=== PATIENT | male | born 1940 | race Caucasian/White ===

== ENCOUNTER 2019-04-05 22:10 | Emergency (ER) | payer MEDICARE, SELFPAY ==
--- NOTE | 2019-04-05 22:17 | DI.RAD.S_ITS ---
PROCEDURE: XR CHEST 1V INDICATIONS: chest pain TECHNIQUE: One view of the chest was acquired. COMPARISON: None. FINDINGS: Surgical changes and devices: None. Lungs and pleura: There is left hemidiaphragm elevation. Lungs are clear. No pleural effusions or pneumothorax. Mediastinum: Mediastinal contours appear normal. Heart size is normal. Bones and chest wall: No suspicious bony lesions. Overlying soft tissues appear unremarkable. IMPRESSION: 1. 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 If clinically indicated, sniff test under fluoroscopy may be helpful. 2. No acute cardiopulmonary disease. Dictated by: Myrna Sheridan M.D. on 04/06/2019 at 9:11 Approved by: Myrna Sheridan M.D. on 04/06/2019 at 9:12
--- NOTE | 2019-04-05 22:19 | ED_ITS ---
HPI - Chest Pain General Chief Complaint: Chest Pain Stated Complaint: FIBROMYALGIA LEFT/RIGHT SIDE SHOULDER PAIN NECK Time Seen by Provider: 04/05/19 22:17 Source: patient Mode of arrival: Ambulatory Limitations: no limitations History of Present Illness HPI narrative: 78-year-old male former smoker with history of hypertension presents by private auto for evaluation of a sharp and stabbing L sided neck pain / shoulder pain. His pain is worse with motion and improves with rest. He is not dizzy nor weak or lightheaded. He denies any chest pain or shortness of breath. He denies any dizziness, lightheadedness nor numbness, tingling or weakness. He denies any obvious or significant injury. He was seen and evaluated by paramedics who performed a 12 lead EKG which was interpreted as acute VT, aunts they recommended he come and be seen. He denies any exertional change nor other cardiac equivalent or red flags such as diaphoresis or vomiting. Related Data Previous Rx's Medication Instructions Recorded cyclobenzaprine 10 mg PO TID PRN #14 tab 04/06/19 ibuprofen 600 mg PO TID-QID PRN #20 tab 04/06/19 Allergies Allergy/AdvReac Type Severity Reaction Status Date / Time Penicillins AdvReac Verified 04/05/19 22:20 Review of Systems Constitutional Constitutional: Denies chills, Denies fatigue, Denies fever(s), Denies frequent falls, Denies lethargy and Denies weakness Eyes Eyes: Denies change in vision, Denies eye discharge, Denies irritation and Denies loss of vision ENT Ears, Nose, Mouth, and Throat: Denies change in voice, Denies dizziness, Reports neck pain, Denies sore throat and Denies throat swelling Cardiovascular Cardiovascular: Denies chest pain, Denies irregular heart rhythm, Denies lightheadedness, Denies palpitations, Denies dyspnea, Denies dyspnea on exertion and Denies orthopnea Respiratory Respiratory: Denies cough, Denies dyspnea, Denies dyspnea on exertion and Denies wheezing Gastrointestinal Gastrointestinal: Denies abdominal pain, Denies change in bowel habits, Denies diarrhea, Denies nausea and Denies vomiting Genitourinary Genitourinary: Denies hematuria, Denies flank pain, Denies urinary incontinence and Denies urinary urgency Musculoskeletal Musculoskeletal: Denies back pain, Denies muscle weakness, Reports neck pain, Denies numbness and Denies tingling Integumentary/Breasts Skin/Breast: Denies pruritus, Denies erythema, Denies rash and Denies wounds Neurologic Neurologic: Denies behavioral changes, Denies confusion, Denies dizziness, Denies frequent falls, Denies loss of vision, Denies numbness, Denies tingling and Denies weakness Psychiatric Psychiatric: Denies anxiety, Denies behavioral changes, Denies confusion, Denies depression, Denies homicidal ideation and Denies suicidal ideation Endocrine Endocrine: Denies fatigue, Denies flushing and Denies palpitations Hematologic/Lymphatic Hematologic/Lymphatic: Denies easy bruising Allergic/Immunologic Allergic/Immunologic: Denies urticaria, Denies throat swelling and Denies wheezing Patient History Social History Smoking Status: Former smoker Smoking Status: Former smoker Substance Use Type: does not use Exam Narrative Exam Narrative: GENERAL: [78] year old patient appears stated age. Well- nourished, well-developed patient, in mild distress. HEAD: Atraumatic. Normocephalic. EYES: Pupils equal round and reactive. Extraocular motions intact. No scleral icterus. No injection or drainage. ENT: Nose without bleeding, purulent drainage. Throat without erythema, tonsillar hypertrophy or exudate. Airway patent. NECK: Trachea midline. Left-sided paraspinal muscles are tender to palpate. There is no swelling, warmth, induration, erythema or pulsatile mass. No ecchymosis. Pain is worse with isolation of paraspinal neck muscles, with turning head to the left, tilting to the left, and tracking shoulders. CARDIOVASCULAR: Regular rate and rhythm without murmurs, gallops, or rubs. RESPIRATORY: Clear to auscultation. Breath sounds equal bilaterally. No wheezes, rales, or rhonchi. GASTROINTESTINAL: Abdomen soft, non-tender, nondistended. EXTREMITIES: No edema or joint tenderness. BACK: Nontender without deformity or crepitance. No flank tenderness. NEURO: AOx3. SKIN: No rash or erythema of visible areas Initial Vital Signs Initial Vital Signs: Vital Signs Temperature 99.8 F H 04/05/19 22:23 Pulse Rate 74 04/05/19 22:23 Respiratory Rate 18 04/05/19 22:23 Blood Pressure 172/90 H 04/05/19 22:23 Pulse Oximetry 100 04/05/19 22:23 Procedures Orthopedic Splinting/Casting Injury #1: Additional Comments: soft cervical collar placed, patient states it makes him feel better. Patient remains neurovascularly intact. Splint placed by nursing Course Orders Ordered: ED Orders 04/05/19 22:17 XR chest 1V Stat EKG-12 Lead Stat 04/05/19 22:25 Complete Blood Count AUTO DIFF Stat Comprehensive Metabolic Panel Stat Lipase Stat Troponin & CK Cardiac Panel Stat Discontinued Medications Aspirin (Aspirin Chew) 324 mg PO NOW ONE Stop: 04/05/19 22:18 Last Admin: 04/05/19 22:57 Dose: Not Given Documented by: DARIN Cyclobenzaprine HCl (Flexeril 10 Mg Prepack) 1 bottle MISC SEEINSTR ONE Stop: 04/05/19 23:44 Last Admin: 04/05/19 23:56 Dose: 1 bottle Documented by: ANALI Sodium Chloride (Normal Saline 0.9%) 1,000 mls @ 150 mls/hr IV CONT PRESTON Last Infusion: 04/05/19 23:56 Dose: 0 mls/hr Documented by: Admin: 04/05/19 22:25 Dose: 150 mls/hr Documented by: DARIN Ketorolac Tromethamine (Toradol) 15 mg IV NOW ONE Stop: 04/05/19 23:44 Last Admin: 04/05/19 23:56 Dose: 15 mg Documented by: ANALI Vital Signs Vital signs: Vital Signs - 8 hr 04/05/19 22:23 04/05/19 23:29 04/06/19 00:32 Temperature 99.8 F H Pulse Rate 74 73 74 Respiratory Rate 18 18 18 Blood Pressure 172/90 H 144/93 H Blood Pressure [Right Arm] 145/88 H Pulse Oximetry 100 96 97 MDM - Chest Pain Lab Data Result diagrams: 04/05/19 22:25 04/05/19 22:25 Labs: Lab Results 04/05/19 04/05/19 Range/Units 22:25 22:25 WBC 7.8 (4.5-11.0) X10^3/uL RBC 3.55 L (4.5-5.9) X10^6/uL Hgb 13.2 L (13.5-17.5) g/dL Hct 38.4 L (41-53) % MCV 108.2 H (80-100) fL MCH 37.3 H (26-34) PG MCHC 34.5 (30-36) % RDW 15.5 H (11.6-14.8) % Plt Count 89 L (150-400) X10^3/uL Neut % (Auto) 63.7 (50-75) % Lymph % (Auto) 12.1 L (25-40) % [place] % (Auto) 22.7 H (3-14) % Eos % (Auto) 1.3 L (2-4) % Baso % (Auto) 0.2 (0-2) % Neut # (Auto) 5000 (7695-0891) /uL Lymph # (Auto) 900 L (3385-0163) /uL [place] # (Auto) 1800 H (0-900) /uL Eos # (Auto) 100 (0-450) /uL Baso # (Auto) 0 (0-100) /uL Sodium 141 (137-145) mmol/L Potassium 4.3 (3.4-5.1) mmol/L Chloride 105 (98-107) mmol/L Carbon Dioxide 27 (22-32) mmol/L BUN 22 H (9-20) mg/dL Creatinine 0.80 (0.66-1.25) mg/dL Estimated GFR > 60.0 (>60) mL/min BUN/Creatinine Ratio 27.5 H (6-22) Glucose 100 (80-110) mg/dL Calcium 9.6 (8.4-10.2) mg/dL Total Bilirubin 1.3 (0.2-1.3) mg/dL AST 27 (17-59) IU/L ALT 19 (<50) IU/L Alkaline Phosphatase 70 (38-126) U/L Total Creatine Kinase 74 (55-170) U/L CK-MB (CK-2) TNP CK-MB (CK-2) Rel Index TNP Troponin I < 0.012 (0.01-0.034) ng/mL Total Protein 7.6 (6.3-8.2) g/dL Albumin 4.8 (3.5-5.0) g/dL Globulin 2.8 (1.7-4.1) g/dL Albumin/Globulin Ratio 1.7 (1.0-2.8) Lipase 153 (23-300) U/L Discharge Plan Departure Patient Disposition: Home Clinical Impression: Pain in left paraspinal region Discharge Date/Time: 04/06/19 00:41 Instructions: DI for Neck Pain Activity Restrictions/Additional Instructions: *You have been diagnosed with [acute left-sided paraspinal neck pain] *What to do: *Take medications as directed *Follow up with your primary care provider in 2-3 days, call for an appointment. Let them know you were seen in the Emergency Department and that we ask that you be seen in follow up *Return to ER if you should have any new, worsening or concerning symptoms, such as [chest pain, shortness of breath, sweating for no good reason, fever over 101 and other bothersome symptoms] Prescriptions: New cyclobenzaprine 10 mg tablet 10 mg PO TID PRN (Reason: muscle spasm) Qty: 14 RF: 0 ibuprofen 600 mg tablet 600 mg PO TID-QID PRN (Reason: pain) Qty: 20 RF: 0
[2019-04-05 22:23] VITALS: BP 172/90; PULSE 74; RESP 18; TEMP 37.7; O2SAT 100; BMI 22.3
[2019-04-05] MEDS: SODIUM CHLORIDE 0.9% 1,000 ML 150 ML IV (22:25)
[2019-04-05 22:36] LABS: Add Manual Diff / Slide Review NO; Basophils Absolute Auto 0 /uL (0-100); Basophils Percent Auto 0.2 % (0-2); Eosinophils Absolute Auto 100 /uL (0-450); Eosinophils Percent Auto 1.3 % (2-4); Hematocrit 38.4 % (41-53); Hemoglobin 13.2 g/dL (13.5-17.5); Lymphocytes Absolute Auto 900 /uL (1100-4500); Lymphocytes Percent Auto 12.1 % (25-40); Mean Corpuscular HGB Conc 34.5 % (30-36); Mean Corpuscular Hemoglobin 37.3 PG (26-34); Mean Corpuscular Volume 108.2 fL (80-100); Monocytes Absolute Auto 1800 /uL (0-900); Monocytes Percent Auto 22.7 % (3-14); Neutrophils Absolute Auto 5000 /uL (1500-7000); Neutrophils Percent Auto 63.7 % (50-75); Platelet Count 89 X10^3/uL (150-400); Red Blood Cell Count 3.55 X10^6/uL (4.5-5.9); Red Cell Distribution Width 15.5 % (11.6-14.8); White Blood Cell Count 7.8 X10^3/uL (4.5-11.0)
[2019-04-05 22:43] LABS: Alanine Aminotransferase 19 IU/L (<50); Albumin 4.8 g/dL (3.5-5.0); Albumin Globulin Ratio 1.7 (1.0-2.8); Alkaline Phosphatase 70 U/L (38-126); Aspartate Aminotransferase 27 IU/L (17-59); BUN Creatinine Ratio 27.5 (6-22); Bilirubin Total 1.3 mg/dL (0.2-1.3); Blood Urea Nitrogen 22 mg/dL (9-20); Calcium 9.6 mg/dL (8.4-10.2); Carbon Dioxide 27 mmol/L (22-32); Chloride 105 mmol/L (98-107); Creatine Kinase 74 U/L (55-170); Estimated Glomerular Filt Rate > 60.0 mL/min (>60); Globulin 2.8 g/dL (1.7-4.1); Glucose 100 mg/dL (80-110); HEMOLYSIS < 15 (0-50); Lipase 153 U/L (23-300); Potassium 4.3 mmol/L (3.4-5.1); Sodium 141 mmol/L (137-145); Total Protein 7.6 g/dL (6.3-8.2)
[2019-04-05 22:54] LABS: Troponin I < 0.012 ng/mL (0.01-0.034)
[2019-04-05 23:29] VITALS: BP 145/88; PULSE 73; RESP 18; O2SAT 96
[2019-04-05] MEDS: CYCLOBENZAPRINE 10 MG PREPACK 1 BOTTLE MISC (23:56)
[2019-04-05] MEDS: KETOROLAC 60 MG/2 ML VIAL 15 MG IV (23:56)
[2019-04-06 00:32] VITALS: BP 144/93; PULSE 74; RESP 18; O2SAT 97
== END 2019-04-06 00:41 | disposition home or self-care (01) ==
PROVIDERS: Emergency Provider Emergency Medicine
DX: M54.2 Cervicalgia (principal); M25.512 Pain in left shoulder; I10 Essential (primary) hypertension
CPT/HCPCS: 36415; 71045; 80053; 82550; 83690; 84484; 85025; 93005; 96361; 96374; 99284; 99285; J1885

== ENCOUNTER 2019-04-11 20:04 | Emergency (ER) | payer MEDICARE, SELFPAY ==
--- NOTE | 2019-04-11 20:22 | ED.GENADULT ---
HPI - General Adult General Chief complaint: Weakness Stated complaint: falls, unable to get back up Time Seen by Provider: 04/11/19 20:06 Source: patient Mode of arrival: Family Vehicle Limitations: no limitations History of Present Illness HPI narrative: Patient is a 78-year-old male who was sent to our department from [facility] after the paramedics were called to his house. Patient states that he was bending over to plug and some space heaters when he stated that he does lost his balance and fell over and could get up. Patient states that he feels like he has had some balance issues over the past several days/weeks. No specific symptoms. No headache. No spinning sensation. No chest pain. No shortness of breath. He was seen here in our emergency department approximately 1 week ago after he was complaining of shoulder pain. [place] however his workup here in the emergency department resulted in a musculoskeletal etiology of his symptoms. Patient has not tried anything for symptoms. Has not been evaluated by his primary doctor for his symptoms. Related Data Previous Rx's Medication Instructions Recorded cyclobenzaprine 10 mg PO TID PRN #14 tab 04/06/19 ibuprofen 600 mg PO TID-QID PRN #20 tab 04/06/19 Allergies Allergy/AdvReac Type Severity Reaction Status Date / Time Penicillins AdvReac Verified 04/05/19 22:20 Review of Systems Constitutional Constitutional: Denies chills, Reports frequent falls, Denies headache(s), Denies lethargy, Denies poor appetite and Reports weakness Eyes Eyes: Denies change in vision and Denies diplopia ENT Ears, Nose, Mouth, and Throat: Denies vertigo, Denies dizziness, Denies headache(s), Reports disequilibrium and Denies sinus pressure Cardiovascular Cardiovascular: Denies chest pain, Denies chest pain at rest, Denies syncope, Denies lightheadedness, Denies palpitations and Denies dyspnea Respiratory Respiratory: Denies chest congestion, Denies cough and Denies dyspnea Gastrointestinal Gastrointestinal: Denies abdominal pain, Denies nausea and Denies vomiting Genitourinary Genitourinary: Denies dysuria Musculoskeletal Musculoskeletal: Denies back pain, Denies myalgias and Denies arthralgias Integumentary/Breasts Skin/Breast: Denies rash Neurologic Neurologic: Denies abnormal speech, Denies behavioral changes, Denies confusion, Denies vertigo, Denies dizziness, Denies syncope, Reports frequent falls, Denies headache(s), Denies paresthesias, Reports disequilibrium and Reports weakness Psychiatric Psychiatric: Denies anxiety, Denies behavioral changes and Denies confusion Endocrine Endocrine: Denies palpitations Hematologic/Lymphatic Hematologic/Lymphatic: Denies easy bleeding and Denies easy bruising Allergic/Immunologic Allergic/Immunologic: Denies urticaria Patient History Medical History Back pain (Acute) Social History Smoking Status: Former smoker Smoking Status: Former smoker alcohol intake frequency: 0-2 drinks per day Alcohol type: wine Substance Use Type: does not use Exam Initial Vital Signs Initial Vital Signs: Vital Signs Temperature 98.3 F 04/11/19 20:24 Pulse Rate 87 04/11/19 20:24 Respiratory Rate 18 04/11/19 20:24 Blood Pressure 129/74 04/11/19 20:24 Pulse Oximetry 98 04/11/19 20:24 Const General: cooperative, comfortable, well developed, well groomed and No acute distress Nutritional Appearance: average body habitus Limitations: mental status not altered HENIA Head: normal to inspection and normocephalic Eyes Eyelids: eyelids normal Pupils: PERRL EOM: EOM intact bilaterally Chest Chest: No crepitus and No tenderness Resp Effort & Inspection: normal respiratory effort Auscultation: clear to auscultation bilaterally Cardio Rate: regular rate Rhythm: regular rhythm Pulses: radial pulses present GI Inspection: non-distended Palpation: soft, No firm and No tender Back/Spine/Pelvis Back: No CVA tenderness Skin Other: Multiple abrasions on his hands and elbows in various stages of healing most likely consistent with multiple falls. Neuro General: alert, awake and oriented x3 Cranial Nerves: CN's II-XI intact bilaterally Cognition: normal cognition Speech: speech normal Motor: strength 5/5 throughout Sensory Exam: no sensory deficits noted Coordination: [id number] test normal Extrem General: normal to inspection, capillary refill normal and No edema Psych Appearance: grossly normal and well kempt Scores GCS [place] coma scale eye opening: Spontaneous [place] coma scale verbal response: Orientated [place] coma scale motor response: Obey commands [place] coma scale total score: 15 Nexus Score for C-Spine Focal Neurologic deficit present: No Midline spinal tenderness present: No Altered level of conciousness present: No Intoxication present: No Distracting Injury Present: No Nexus Criteria for C-spine: 0 NIH Stroke Scale Level of Conciousness: Alert, keenly responsive Ask month/age: Answers both questions correctly. Open/close eyes, close hand: Performs both tasks correctly Best gaze horizontal: Normal Visual banerjee: No visual loss Facial palsy: Normal symetrical movement Left arm drift: No drift for full 10 sec Right arm drift: No drift for full 10 sec Left leg drift: No drift for full 10 sec Right leg drift: No drift for full 10 sec Limb ataxia: Absent Sensory on face/arms/legs: Normal, no sensory loss Best language: No aphasia, normal Dysarthria: Normal Extinction or inattention: No abnormality Total NIH Stroke scale score: 0 Course Orders Ordered: ED Orders 04/11/19 20:18 Acetaminophen Stat Complete Blood Count AUTO DIFF Stat Comprehensive Metabolic Panel Stat Ethanol (ETOH) Stat Lipase Stat Procalcitonin Stat Thyroid Stimulating Hormone Stat Troponin I Stat 04/11/19 20:24 CT head/brain wo con Stat 04/11/19 20:32 EKG-12 Lead Stat 04/11/19 20:36 Ammonia (NH3) Stat CKMB Panel (CK + CKMB) Stat 04/11/19 21:11 US abdomen limited Stat 04/11/19 21:20 Urine Microscopic Stat Sodium Chloride (Normal Saline 0.9%) 1,000 mls @ 125 mls/hr IV CONT PRESTON Last Admin: 04/11/19 20:51 Dose: 125 mls/hr Documented by: CONTRERAS Discontinued Medications Aspirin (Aspirin Chew) 324 mg PO NOW ONE Stop: 04/11/19 21:12 Last Admin: 04/11/19 21:23 Dose: 324 mg Documented by: CONTRERAS Vital Signs Vital signs: Vital Signs - 8 hr 04/11/19 20:24 04/11/19 21:29 04/11/19 22:04 Temperature 98.3 F Pulse Rate 87 86 80 Respiratory Rate 18 15 17 Blood Pressure 129/74 Blood Pressure [Left Arm] 123/66 128/65 Pulse Oximetry 98 100 99 04/11/19 22:31 Temperature Pulse Rate 68 Respiratory Rate 14 Blood Pressure Blood Pressure [Left Arm] 123/65 Pulse Oximetry 99 Medical Decision Making Medical Records Medical records reviewed: Yes I reviewed the patient's medical records. Lab Data Lab results reviewed: Yes I reviewed the patient's lab results. Result diagrams: 04/11/19 20:18 04/11/19 20:18 Labs: Lab Results 04/11/19 04/11/19 04/11/19 Range/Units 20:18 20:18 20:18 WBC 9.1 (4.5-11.0) X10^3/uL RBC 3.23 L (4.5-5.9) X10^6/uL Hgb 12.0 L (13.5-17.5) g/dL Hct 35.0 L (41-53) % MCV 108.3 H (80-100) fL MCH 37.3 H (26-34) PG MCHC 34.4 (30-36) % RDW 15.0 H (11.6-14.8) % Plt Count 139 L (150-400) X10^3/uL Neut % (Auto) 70.5 (50-75) % Lymph % (Auto) 8.2 L (25-40) % [place] % (Auto) 19.9 H (3-14) % Eos % (Auto) 1.2 L (2-4) % Baso % (Auto) 0.2 (0-2) % Neut # (Auto) 6400 (1150-7118) /uL Lymph # (Auto) 700 L (4815-2603) /uL [place] # (Auto) 1800 H (0-900) /uL Eos # (Auto) 100 (0-450) /uL Baso # (Auto) 0 (0-100) /uL Sodium 139 (137-145) mmol/L Potassium 4.3 (3.4-5.1) mmol/L Chloride 106 (98-107) mmol/L Carbon Dioxide 25 (22-32) mmol/L BUN 77 H (9-20) mg/dL Creatinine 1.30 H (0.66-1.25) mg/dL Estimated GFR 53.5 L (>60) mL/min BUN/Creatinine Ratio 59.2 H (6-22) Glucose 108 (80-110) mg/dL Calcium 9.1 (8.4-10.2) mg/dL Total Bilirubin 0.8 (0.2-1.3) mg/dL AST 125 H (17-59) IU/L ALT 74 H (<50) IU/L Alkaline Phosphatase 55 (38-126) U/L Ammonia (9-30) umol/L Total Creatine Kinase (55-170) U/L CK-MB (CK-2) (<2.37) ng/mL CK-MB (CK-2) Rel Index (1.5-5.0) % Troponin I (0.01-0.034) ng/mL Total Protein 6.6 (6.3-8.2) g/dL Albumin 3.8 (3.5-5.0) g/dL Globulin 2.8 (1.7-4.1) g/dL Albumin/Globulin Ratio 1.4 (1.0-2.8) Lipase 508 H D (23-300) U/L Procalcitonin 0.44 (<0.5) ng/mL TSH (0.47-4.68) uIU/mL Urine RBC (0-5/HPF) Urine WBC (0-5/HPF) Urine Bacteria (None) Urine Sperm Ur Culture Indicated? Acetaminophen (10-30) ug/mL Ethyl Alcohol < 10 ( - 10) mg/dL 04/11/19 04/11/19 04/11/19 Range/Units 20:18 20:18 20:36 WBC (4.5-11.0) X10^3/uL RBC (4.5-5.9) X10^6/uL Hgb (13.5-17.5) g/dL Hct (41-53) % MCV (80-100) fL MCH (26-34) PG MCHC (30-36) % RDW (11.6-14.8) % Plt Count (150-400) X10^3/uL Neut % (Auto) (50-75) % Lymph % (Auto) (25-40) % [place] % (Auto) (3-14) % Eos % (Auto) (2-4) % Baso % (Auto) (0-2) % Neut # (Auto) (5362-8279) /uL Lymph # (Auto) (7630-3529) /uL [place] # (Auto) (0-900) /uL Eos # (Auto) (0-450) /uL Baso # (Auto) (0-100) /uL Sodium (137-145) mmol/L Potassium (3.4-5.1) mmol/L Chloride (98-107) mmol/L Carbon Dioxide (22-32) mmol/L BUN (9-20) mg/dL Creatinine (0.66-1.25) mg/dL Estimated GFR (>60) mL/min BUN/Creatinine Ratio (6-22) Glucose (80-110) mg/dL Calcium (8.4-10.2) mg/dL Total Bilirubin (0.2-1.3) mg/dL AST (17-59) IU/L ALT (<50) IU/L Alkaline Phosphatase (38-126) U/L Ammonia 14.0 (9-30) umol/L Total Creatine Kinase (55-170) U/L CK-MB (CK-2) (<2.37) ng/mL CK-MB (CK-2) Rel Index (1.5-5.0) % Troponin I 0.065 H (0.01-0.034) ng/mL Total Protein (6.3-8.2) g/dL Albumin (3.5-5.0) g/dL Globulin (1.7-4.1) g/dL Albumin/Globulin Ratio (1.0-2.8) Lipase (23-300) U/L Procalcitonin (<0.5) ng/mL TSH 0.66 (0.47-4.68) uIU/mL Urine RBC (0-5/HPF) Urine WBC (0-5/HPF) Urine Bacteria (None) Urine Sperm Ur Culture Indicated? Acetaminophen < 10 L (10-30) ug/mL Ethyl Alcohol ( - 10) mg/dL 04/11/19 04/11/19 Range/Units 20:36 21:20 WBC (4.5-11.0) X10^3/uL RBC (4.5-5.9) X10^6/uL Hgb (13.5-17.5) g/dL Hct (41-53) % MCV (80-100) fL MCH (26-34) PG MCHC (30-36) % RDW (11.6-14.8) % Plt Count (150-400) X10^3/uL Neut % (Auto) (50-75) % Lymph % (Auto) (25-40) % [place] % (Auto) (3-14) % Eos % (Auto) (2-4) % Baso % (Auto) (0-2) % Neut # (Auto) (5261-6860) /uL Lymph # (Auto) (3883-5191) /uL [place] # (Auto) (0-900) /uL Eos # (Auto) (0-450) /uL Baso # (Auto) (0-100) /uL Sodium (137-145) mmol/L Potassium (3.4-5.1) mmol/L Chloride (98-107) mmol/L Carbon Dioxide (22-32) mmol/L BUN (9-20) mg/dL Creatinine (0.66-1.25) mg/dL Estimated GFR (>60) mL/min BUN/Creatinine Ratio (6-22) Glucose (80-110) mg/dL Calcium (8.4-10.2) mg/dL Total Bilirubin (0.2-1.3) mg/dL AST (17-59) IU/L ALT (<50) IU/L Alkaline Phosphatase (38-126) U/L Ammonia (9-30) umol/L Total Creatine Kinase 953 H D (55-170) U/L CK-MB (CK-2) 10.30 H (<2.37) ng/mL CK-MB (CK-2) Rel Index 1.1 L (1.5-5.0) % Troponin I (0.01-0.034) ng/mL Total Protein (6.3-8.2) g/dL Albumin (3.5-5.0) g/dL Globulin (1.7-4.1) g/dL Albumin/Globulin Ratio (1.0-2.8) Lipase (23-300) U/L Procalcitonin (<0.5) ng/mL TSH (0.47-4.68) uIU/mL Urine RBC None seen (0-5/HPF) Urine WBC None seen (0-5/HPF) Urine Bacteria None seen (None) Urine Sperm Present Ur Culture Indicated? Cult not indicated Acetaminophen (10-30) ug/mL Ethyl Alcohol ( - 10) mg/dL Urine Dip Bedside Urine Glucose Negative Bedside Urine Bilirubin - Negative Bedside Urine Ketone - Negative Urine Specific [place] 1.020 Bedside Urine Occult Blood +/- Bedside Urine pH 5.0 Bedside Urine Protein +/- 15 Bedside Urine Urobilinogen - Negative Bedside Urine Nitrite - Negative Bedside Urine Leukocytes - Negative Esterase Point of care testing: Urine Dip Bedside Urine Glucose Negative Bedside Urine Bilirubin - Negative Bedside Urine Ketone - Negative Urine Specific [place] 1.020 Bedside Urine Occult Blood +/- Bedside Urine pH 5.0 Bedside Urine Protein +/- 15 Bedside Urine Urobilinogen - Negative Bedside Urine Nitrite - Negative Bedside Urine Leukocytes - Negative Esterase Imaging Data CT scan - head: Radiologist's Impression: [address] [address] [address] Scan Report Signed Patient: Fuad Guillen AMR#: [id number] : 2Acct:[id number] Age/Sex: 78 / MDate of Service: 04/11/19 Loc: ED Accession Number: [id number] Procedure: CT head/brain wo con Ordering Provider: Mc Joshua D.O. PROCEDURE: CT HEAD/BRAIN WO CON INDICATIONS: Balance issues, frequent falls TECHNIQUE: Noncontrast 4.5 mm thick angled axial sections acquired from the foramen magnum to the vertex, with coronal and sagittal reformats. For radiation dose reduction, the following was used: automated exposure control, adjustment of mA and/or kV according to patient size. COMPARISON: None. FINDINGS: Image quality: Excellent. CSF spaces: Basal cisterns are patent. No extra-axial fluid collections. The ventricles are symmetric in size and shape. Brain: No intracranial bleeds or masses. There is marked cerebral volume loss for age, with resultant ventricular and sulcal prominence. There are extensive periventricular and deep white matter chronic small vessel ischemic changes. A 1.4 cm diameter parenchymal hypodensity is present within the right caudate lobe suggesting the presence of a subacute or early chronic lacunar infarct. There is intracranial internal carotid artery atherosclerosis. Skull and face: Calvarium and visualized facial bones appear intact, without suspicious lesions. Sinuses: Visualized sinuses and mastoids are clear. IMPRESSION: 1. 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 2. No acute intracranial findings. 3. Extensive findings likely associated with chronic microvascular ischemic change. Dictated by: Юлия Grady M.D. on 04/11/2019 at 21:14 Approved by: Юлия Grady M.D. on 04/11/2019 at 21:16 US - abdomen: Radiologist's Impression: Cholelithiasis, gallbladder wall thickening. No biliary dilation ECG Data Attestation: I personally reviewed and interpreted this ECG as follows: Prior ECG tracings: available for review Interpretation: Sinus rhythm Occasional PACs Ventricular rate 82 QRS on 04/[address] T wave changes Comparison EKG 04/05/2019 Sinus rhythm Ventricular rate is 68 No change from today's EKG MDM Narrative Medical decision making narrative: Patient with fairly nonspecific symptoms upon arrival. Had any score of 0. No focal neurologic deficits. He was able to stand at bedside but did require some assistance. Was fairly unstable with taking just a few short steps. Was alert and oriented x3. GCS of 15. Patient does have a slight elevation in his creatinine. Was given fluids for this. Does have an elevation in his LFTs and lipase. Right upper quadrant ultrasound shows cholelithiasis without signs of cholecystitis. Patient also has a slight elevation in his troponin. He is not complaining of any chest pain and has not had any chest pain or shortness of breath. His EKG shows no specific ST changes. He was given an aspirin. Will not start on heparin. Does not meet diagnostic criteria for AMI. Head CT is concerning for potential basal ganglia infarct. Unsure of the acuteness of this finding. This could explain many of the symptoms the has today. I did discuss the case with hospitalist at [facility] who accepts the patient in transfer. I did discuss the findings with the patient. Discussed the need for transport secondary to some specialist consultation to include Cardiology, GI, neurology. Patient expressed understanding agreement. Patient is stable for transport. Discharge Plan Departure Patient Disposition: [facility] Clinical Impression: ACS (acute coronary syndrome), Weakness, Elevated LFTs, NICK (acute kidney injury) Cholelithiasis Qualifiers: Cholelithiasis location: gallbladder Cholecystitis presence: without cholecystitis Biliary obstruction: without biliary obstruction Qualified Code(s): K80.20 - Calculus of gallbladder without cholecystitis without obstruction Prescriptions: No Action cyclobenzaprine 10 mg tablet 10 mg PO TID PRN (Reason: muscle spasm) Qty: 14 RF: 0 ibuprofen 600 mg tablet 600 mg PO TID-QID PRN (Reason: pain) Qty: 20 RF: 0
[2019-04-11 20:24] VITALS: BP 129/74; PULSE 87; RESP 18; TEMP 36.8; O2SAT 98; BMI 30.5
[2019-04-11 20:37] LABS: Add Manual Diff / Slide Review NO; Basophils Absolute Auto 0 /uL (0-100); Basophils Percent Auto 0.2 % (0-2); Eosinophils Absolute Auto 100 /uL (0-450); Eosinophils Percent Auto 1.2 % (2-4); Lymphocytes Absolute Auto 700 /uL (1100-4500); Lymphocytes Percent Auto 8.2 % (25-40); Mean Corpuscular HGB Conc 34.4 % (30-36); Mean Corpuscular Hemoglobin 37.3 PG (26-34); Mean Corpuscular Volume 108.3 fL (80-100); Monocytes Absolute Auto 1800 /uL (0-900); Monocytes Percent Auto 19.9 % (3-14); Neutrophils Absolute Auto 6400 /uL (1500-7000); Neutrophils Percent Auto 70.5 % (50-75); Platelet Count 139 X10^3/uL (150-400); Red Blood Cell Count 3.23 X10^6/uL (4.5-5.9); White Blood Cell Count 9.1 X10^3/uL (4.5-11.0)
[2019-04-11] MEDS: SODIUM CHLORIDE 0.9% 1,000 ML 125 ML IV (20:51)
[2019-04-11 20:56] LABS: Alanine Aminotransferase 74 IU/L (<50); Albumin 3.8 g/dL (3.5-5.0); Albumin Globulin Ratio 1.4 (1.0-2.8); Alkaline Phosphatase 55 U/L (38-126); Aspartate Aminotransferase 125 IU/L (17-59); BUN Creatinine Ratio 59.2 (6-22); Bilirubin Total 0.8 mg/dL (0.2-1.3); Blood Urea Nitrogen 77 mg/dL (9-20); Calcium 9.1 mg/dL (8.4-10.2); Carbon Dioxide 25 mmol/L (22-32); Chloride 106 mmol/L (98-107); Estimated Glomerular Filt Rate 53.5 mL/min (>60); Ethanol (ETOH) < 10 mg/dL; Globulin 2.8 g/dL (1.7-4.1); Glucose 108 mg/dL (80-110); HEMOLYSIS < 15 (0-50); Lipase 508 U/L (23-300); Potassium 4.3 mmol/L (3.4-5.1); Sodium 139 mmol/L (137-145); Total Protein 6.6 g/dL (6.3-8.2)
[2019-04-11 20:57] LABS: Acetaminophen < 10 ug/mL (10-30)
[2019-04-11 21:06] LABS: Procalcitonin 0.44 ng/mL (<0.5)
[2019-04-11 21:08] LABS: Troponin I 0.065 ng/mL (0.01-0.034)
--- NOTE | 2019-04-11 21:11 | DI.US.S_ITS ---
PROCEDURE: US ABDOMEN LIMITED INDICATIONS: RUQ US FOR GB PATHOLOGY TECHNIQUE: Real-time focused scanning was performed of the abdomen, with image documentation. COMPARISON: None. FINDINGS: The pancreatic bed is obscured by bowel gas. The liver demonstrates mild diffuse hyperechoic parenchyma. Multiple cystic structures are seen in the liver, the largest measuring 4.6 cm. No suspicious solid masses. The gallbladder contains dependent layering sludge and small stones. The wall measures about 2 mm with a questionable area of focal wall thickening at the fundus measuring up to 4 mm. There is no pericholecystic fluid or sonographic Grace's sign. Common duct is normal at 5 mm. IMPRESSION: 1. Cholelithiasis without sonographic evidence of acute cholecystitis. Focal wall thickening is nonspecific. 2. Mild hepatic steatosis or other intrinsic liver disease. 3. Hepatic cysts. 4. Concordant with preliminary report. Dictated by: Sonya Costa M.D. on 04/12/2019 at 9:13 Approved by: Sonya Costa M.D. on 04/12/2019 at 9:16
[2019-04-11] MEDS: ASPIRIN 81 MG CHEW TAB 324 MG PO (21:23)
[2019-04-11 21:26] LABS: Thyroid Stimulating Hormone 0.66 uIU/mL (0.47-4.68)
[2019-04-11 21:27] LABS: Creatine Kinase 953 U/L (55-170)
[2019-04-11 21:28] LABS: Bacteria Urine None Seen; RBC Urine None Seen (0-5/HPF); WBC Urine None Seen (0-5/HPF)
[2019-04-11 21:29] VITALS: BP 123/66; PULSE 86; RESP 15; O2SAT 100
[2019-04-11 21:37] LABS: Culture Indicated Urine Cult Not Indicated; Sperm Urine PRESENT
[2019-04-11 21:45] LABS: CKMB % Relative Index 1.1 % (1.5-5.0)
[2019-04-11 22:04] VITALS: BP 128/65; PULSE 80; RESP 17; O2SAT 99
[2019-04-11 22:31] VITALS: BP 123/65; PULSE 68; RESP 14; O2SAT 99
--- NOTE | 2019-04-11 23:12 | PC.NURSE ---
I updated the patients neighbor Rubin Rodriguez per the patients request. His cellphone number is [phone]
--- NOTE | 2019-04-11 23:44 | PC.NURSE ---
normal saline to continue in transport
[2019-04-11 23:59] VITALS: BP 126/76; PULSE 72; RESP 18; O2SAT 96
== END 2019-04-12 00:01 | disposition short-term general hospital (02) ==
PROVIDERS: Emergency Provider Emergency Medicine
DX: I24.9 Acute ischemic heart disease, unspecified (principal); R94.5 Abnormal results of liver function studies; R53.1 Weakness; N17.9 Acute kidney failure, unspecified; K80.20 Calculus of gallbladder without cholecystitis without obstruction; Z91.81 History of falling
CPT/HCPCS: 36415; 70450; 76705; 80053; 80320; 80329; 81003; 81015; 82140; 82550; 82553; 83690; 84145; 84443; 84484; 85025; 93005; 96360; 96361; 99284; 99285; G0480

== ENCOUNTER → 2020-06-07 15:07 | Outpatient (CLI) | payer MEDICARE, SELFPAY ==
[2020-06-07] MEDS: COVID-19 VACC, Ad26(JANSSEN)/PF 0.5 ML IM (15:21)
== END ==
PROVIDERS: Visit Provider Internal Medicine
DX: Z23 Encounter for immunization (principal)
CPT/HCPCS: 0031A; 91303

== ENCOUNTER → 2020-11-01 07:35 | Outpatient (CLI) | payer MEDICARE, OTHER, SELFPAY ==
[2020-11-01 09:44] LABS: Add Manual Diff / Slide Review NO; Basophils Absolute Auto 0 /uL (0-100); Basophils Percent Auto 1.3 % (0-2); Eosinophils Absolute Auto 200 /uL (0-450); Eosinophils Percent Auto 7.5 % (2-4); Hematocrit 32.2 % (41-53); Hemoglobin 10.9 g/dL (13.5-17.5); Lymphocytes Absolute Auto 800 /uL (1100-4500); Lymphocytes Percent Auto 25.2 % (25-40); Mean Corpuscular HGB Conc 33.7 % (30-36); Mean Corpuscular Hemoglobin 37.2 PG (26-34); Mean Corpuscular Volume 110.3 fL (80-100); Monocytes Absolute Auto 500 /uL (0-900); Monocytes Percent Auto 13.8 % (3-14); Neutrophils Absolute Auto 1700 /uL (1500-7000); Neutrophils Percent Auto 52.2 % (50-75); Platelet Count 87 X10^3/uL (150-400); Red Blood Cell Count 2.92 X10^6/uL (4.5-5.9); Red Cell Distribution Width 17.8 % (11.6-14.8); White Blood Cell Count 3.3 X10^3/uL (4.5-11.0)
[2020-11-01 09:52] LABS: Alanine Aminotransferase 19 IU/L (<50); Albumin 4.2 g/dL (3.5-5.0); Albumin Globulin Ratio 1.7 (1.0-2.8); Alkaline Phosphatase 64 U/L (38-126); Aspartate Aminotransferase 30 IU/L (17-59); BUN Creatinine Ratio 30.3 (6-22); Bilirubin Total 0.6 mg/dL (0.2-1.3); Blood Urea Nitrogen 20 mg/dL (9-20); Calcium 9.7 mg/dL (8.4-10.2); Carbon Dioxide 29 mmol/L (22-32); Chloride 106 mmol/L (98-107); Cholesterol 155 mg/dL (140-199); Estimated Glomerular Filt Rate > 60.0 mL/min (>60); Globulin 2.5 g/dL (1.7-4.1); Glucose 96 mg/dL (80-110); HDL Cholesterol 67 mg/dL (40-60); HEMOLYSIS < 15 (0-50); LDL Cholesterol Calculated 58 mg/dL (<100); Potassium 4.6 mmol/L (3.4-5.1); Sodium 140 mmol/L (137-145); Total Protein 6.7 g/dL (6.3-8.2); Triglycerides 152 mg/dL (35-150)
[2020-11-01 10:05] LABS: Vitamin D 25 Hydroxy (D3) 67.7 ng/mL (30.0-100.0)
[2020-11-01 10:26] LABS: Anisocytosis 1+; Macrocytosis 2+
== END ==
PROVIDERS: PCP Family Medicine; Referring Provider Family Medicine; Visit Provider Family Medicine
DX: D53.1 Other megaloblastic anemias, not elsewhere classified (principal); E78.5 Hyperlipidemia, unspecified; Z12.5 Encounter for screening for malignant neoplasm of prostate; E55.9 Vitamin D deficiency, unspecified; I25.10 Atherosclerotic heart disease of native coronary artery without angina pectoris; R79.89 Other specified abnormal findings of blood chemistry
CPT/HCPCS: 36415; 80053; 80061; 82306; 85025; G0103

== ENCOUNTER → 2020-11-02 15:40 | Outpatient (CLI) | payer MEDICARE, OTHER, SELFPAY ==
[2020-11-02 16:29] LABS: Add Manual Diff / Slide Review NO; Basophils Absolute Auto 0 /uL (0-100); Basophils Percent Auto 0.7 % (0-2); Eosinophils Absolute Auto 300 /uL (0-450); Eosinophils Percent Auto 5.7 % (2-4); Hematocrit 32.9 % (41-53); Lymphocytes Absolute Auto 1000 /uL (1100-4500); Lymphocytes Percent Auto 21.2 % (25-40); Mean Corpuscular HGB Conc 33.4 % (30-36); Mean Corpuscular Hemoglobin 37.1 PG (26-34); Mean Corpuscular Volume 111.2 fL (80-100); Monocytes Absolute Auto 600 /uL (0-900); Neutrophils Absolute Auto 3000 /uL (1500-7000); Neutrophils Percent Auto 60.4 % (50-75); Platelet Count 98 X10^3/uL (150-400); Red Blood Cell Count 2.96 X10^6/uL (4.5-5.9); Red Cell Distribution Width 18.2 % (11.6-14.8); White Blood Cell Count 4.9 X10^3/uL (4.5-11.0)
[2020-11-02 16:41] LABS: HEMOLYSIS < 15 (0-50); Iron 133 ug/dL (49-181)
[2020-11-02 16:52] LABS: Percent Iron Saturation 45 % (20-50); Total Iron Binding Capacity 294 ug/dL (261-462); Transferrin 220 mg/dL (206-381)
[2020-11-02 17:17] LABS: Ferritin 162 ng/mL (18-464)
[2020-11-02 17:31] LABS: Vitamin B12 Reflex MMA if <400 744 pg/mL (239-931)
[2020-11-02 18:38] LABS: Macrocytosis 2+; Platelet Estimate Decreased on smear
== END ==
PROVIDERS: PCP Family Medicine; Referring Provider Family Medicine; Visit Provider Family Medicine
DX: D53.1 Other megaloblastic anemias, not elsewhere classified (principal); I25.10 Atherosclerotic heart disease of native coronary artery without angina pectoris
CPT/HCPCS: 36415; 82607; 82728; 83540; 83550; 85025

== ENCOUNTER → 2020-11-28 12:47 | Outpatient (CLI) | payer MEDICARE, OTHER, SELFPAY ==
--- NOTE | 2020-11-28 12:49 | DI.US.S_ITS ---
PROCEDURE: US ABDOMEN LIMITED INDICATIONS: ASSESS FOR CIRRHOSIS TECHNIQUE: Real-time focused scanning was performed of the abdomen, with image documentation. COMPARISON: [facility], US, US ABDOMEN LIMITED, 04/11/2019, 21:59. FINDINGS: The liver demonstrates normal size and demonstrates overall normal echogenicity. Several cystic lesions are seen within the liver. Within the left liver superior and laterally, there is a 2.8 x 2.8 x 4.3 cm simple appearing, anechoic cyst. Within the left mid liver, there is a septated cyst without abnormal vascularity and a nodule that measures 1.5 x 1.6 x 1.2 cm. Within the left mid liver laterally, there is a septated cyst seen that measures 1.9 x 1.5 x 1.6 cm. Within the right liver, there is a septated cyst that measures 2.9 x 2.9 x 2.3 cm. Multiple small mobile gallstones can be seen, with sludge also seen. The gallbladder wall is not thickened, measuring 3 mm or less. No specific pericholecystic fluid is seen. The sonographic Grace sign is negative. There is no biliary dilatation, the common bile duct measures 4 mm. The biliary system is overall not well seen. Pancreas is not well seen. IMPRESSION: No [place]ingo findings of cirrhosis are seen on this study. Numerous liver cysts are seen, including complex, septated cysts. Gallstones are seen, yet without additional sonographic signs of cholecystitis. Negative for biliary dilatation. Please correlate with physical examination findings, patient presentation, and laboratory values. Dictated by: Tereso Matta M.D. on 11/28/2020 at 13:49 Approved by: Tereso Matta M.D. on 11/28/2020 at 13:52
== END ==
PROVIDERS: PCP Family Medicine; Referring Provider Internal Medicine Medical Oncology; Visit Provider Internal Medicine Medical Oncology
DX: D53.1 Other megaloblastic anemias, not elsewhere classified (principal); D61.818 Other pancytopenia; K76.89 Other specified diseases of liver; K80.20 Calculus of gallbladder without cholecystitis without obstruction
CPT/HCPCS: 76705

== ENCOUNTER → 2021-03-14 16:17 | Outpatient (CLI) | payer MEDICARE, OTHER, SELFPAY | PROVIDERS: PCP Family Medicine; Referring Provider Internal Medicine Medical Oncology; Visit Provider Internal Medicine Medical Oncology | DX: D64.9 Anemia, unspecified (principal); R06.02 Shortness of breath | CPT/HCPCS: 36415; 86850; 86900; 86901 ==

== ENCOUNTER → 2021-07-12 15:06 | Outpatient (CLI) | payer MEDICARE, OTHER, SELFPAY ==
--- NOTE | 2021-07-12 15:07 | DI.RAD.S_ITS ---
PROCEDURE: XR CHEST 2V INDICATIONS: lower extremity edema, murmur TECHNIQUE: 2 views of the chest were acquired. COMPARISON: [facility], , XR CHEST 1V, 04/05/2019, 22:23. FINDINGS: Surgical changes and devices: None. Lungs and pleura: Linear density in the right lower lung zone, which may reflect atelectasis and/or scarring. Coarsened interstitial markings. No pleural effusions or pneumothorax. Mediastinum: Mediastinal contours are normal. Heart size is normal. Bones and chest wall: No suspicious bony abnormalities. Persistent elevation of the left diaphragm. IMPRESSION: Right lower lung zone atelectasis/scar. Dictated by: Khris Cohen M.D. on 07/12/2021 at 16:03 Approved by: Khris Cohen M.D. on 07/12/2021 at 16:03
== END ==
PROVIDERS: PCP Family Medicine; Referring Provider Family Medicine; Visit Provider Family Medicine
DX: R01.1 Cardiac murmur, unspecified (principal); R60.0 Localized edema
CPT/HCPCS: 71046

== ENCOUNTER → 2021-07-14 11:51 | Outpatient (CLI) | payer MEDICARE, OTHER, SELFPAY ==
[2021-07-14 12:07] LABS: Add Manual Diff / Slide Review NO; Basophils Absolute Auto 0 /uL (0-100); Basophils Percent Auto 0.5 % (0-2); Eosinophils Absolute Auto 200 /uL (0-450); Eosinophils Percent Auto 3.9 % (2-4); Hematocrit 21.3 % (41-53); Hemoglobin 7.2 g/dL (13.5-17.5); Lymphocytes Absolute Auto 1000 /uL (1100-4500); Lymphocytes Percent Auto 18.4 % (25-40); Mean Corpuscular Hemoglobin 35.8 PG (26-34); Mean Corpuscular Volume 105.4 fL (80-100); Monocytes Absolute Auto 800 /uL (0-900); Monocytes Percent Auto 14.3 % (3-14); Neutrophils Absolute Auto 3500 /uL (1500-7000); Neutrophils Percent Auto 62.9 % (50-75); Platelet Count 160 X10^3/uL (150-400); Red Blood Cell Count 2.02 X10^6/uL (4.5-5.9); Red Cell Distribution Width 26.7 % (11.6-14.8); White Blood Cell Count 5.6 X10^3/uL (4.5-11.0)
[2021-07-14 12:16] LABS: Alanine Aminotransferase 26 IU/L (<50); Albumin 4.2 g/dL (3.5-5.0); Albumin Globulin Ratio 1.4 (1.0-2.8); Alkaline Phosphatase 66 U/L (38-126); Aspartate Aminotransferase 31 IU/L (17-59); BUN Creatinine Ratio 35.8 (6-22); Bilirubin Total 1.1 mg/dL (0.2-1.3); Blood Urea Nitrogen 29 mg/dL (9-20); Carbon Dioxide 28 mmol/L (22-32); Chloride 112 mmol/L (98-107); Estimated Glomerular Filt Rate > 60 mL/min (>60); Globulin 2.9 g/dL (1.7-4.1); Glucose 106 mg/dL (80-110); HEMOLYSIS < 15 (0-50); Potassium 3.9 mmol/L (3.4-5.1); Sodium 146 mmol/L (137-145); Total Protein 7.1 g/dL (6.3-8.2)
[2021-07-14 12:47] LABS: Macrocytosis 2+
[2021-07-14 13:52] LABS: NT-proBNP (BNP-Adult 18+) 622 pg/mL (<450)
== END ==
PROVIDERS: Internal Medicine Medical Oncology; PCP Family Medicine; Referring Provider Family Medicine; Visit Provider Family Medicine
DX: R01.1 Cardiac murmur, unspecified (principal); D61.818 Other pancytopenia; R60.0 Localized edema; D46.9 Myelodysplastic syndrome, unspecified
CPT/HCPCS: 36415; 80053; 83880; 85025

== ENCOUNTER → 2021-08-09 10:58 | Outpatient (CLI) | payer MEDICARE, OTHER, SELFPAY ==
[2021-08-09 11:16] VITALS: BP 159/85; PULSE 56; RESP 18; TEMP 36.8; O2SAT 99
[2021-08-09 11:34] VITALS: BP 140/75
[2021-08-09] MEDS: EPOETIN ALFA-EPBX 10,000 UNIT/ML VIAL 20000 UNIT SUBCUT (11:40)
== END ==
PROVIDERS: PCP Family Medicine; Referring Provider Internal Medicine Medical Oncology; Visit Provider Internal Medicine Medical Oncology
DX: D53.1 Other megaloblastic anemias, not elsewhere classified (principal); D46.9 Myelodysplastic syndrome, unspecified
CPT/HCPCS: 96372; Q5106

== ENCOUNTER → 2021-08-14 14:37 | Outpatient (CLI) | payer MEDICARE, OTHER, SELFPAY ==
[2021-08-14 20:28] LABS: Occult Blood 1 Negative (Negative)
== END ==
PROVIDERS: PCP Family Medicine; Referring Provider Internal Medicine Medical Oncology; Visit Provider Internal Medicine Medical Oncology
DX: D46.9 Myelodysplastic syndrome, unspecified (principal); D53.1 Other megaloblastic anemias, not elsewhere classified; D61.818 Other pancytopenia
CPT/HCPCS: 82270

== ENCOUNTER → 2021-08-16 10:56 | Outpatient (CLI) | payer MEDICARE, OTHER, SELFPAY ==
[2021-08-16 11:09] VITALS: BP 128/70; PULSE 63; RESP 16; TEMP 36.6; O2SAT 95
[2021-08-16] MEDS: EPOETIN ALFA-EPBX 10,000 UNIT/ML VIAL 20000 UNIT SUBCUT (11:32)
== END ==
PROVIDERS: PCP Family Medicine; Referring Provider Family Medicine; Visit Provider Internal Medicine Medical Oncology
DX: D46.9 Myelodysplastic syndrome, unspecified
CPT/HCPCS: 96372; Q5106